=== PATIENT | male | born 2000 | race African-American/Black ===

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

== ENCOUNTER 2025-03-23 18:45 | Emergency (ER) | payer MEDICAID, OTHER ==
[~2025-03-23] VITALS: Ht 152.4 cm; Wt 59.4 kg
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
[2025-03-23] MEDS: IBUPROFEN 800 MG TAB PO ONE (20:54)
[2025-03-23] MEDS: ACETAMINOPHEN 325 MG TAB PO ONE (20:54)
[2025-03-23 20:56] VITALS: BP 130/61; PULSE 60; RESP 18; TEMP 98.2; O2SAT 94
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
== END 2025-03-23 22:02 | disposition home or self-care (01) ==
LOC: ER 18:45
DX: S93.401A Sprain of unspecified ligament of right ankle, initial encounter (principal); S83.91XA Sprain of unspecified site of right knee, initial encounter; S73.101A Unspecified sprain of right hip, initial encounter; S00.83XA Contusion of other part of head, initial encounter; F17.200 Nicotine dependence, unspecified, uncomplicated; F12.90 Cannabis use, unspecified, uncomplicated; V89.2XXA Person injured in unspecified motor-vehicle accident, traffic, initial encounter; Y93.89 Activity, other specified; Y92.410 Unspecified street and highway as the place of occurrence of the external cause; Y99.8 Other external cause status
CPT/HCPCS: 73610